=== PATIENT | female | born 1980 | race Caucasian/White ===

== ENCOUNTER 2019-03-24 14:33 | Emergency (ER) | payer OTHER ==
[~2019-03-24] VITALS: Ht 152.4 cm; Wt 72.6 kg
[2019-03-24 14:35] VITALS: BP 114/63
--- NOTE | 2019-03-24 14:35 | NUR ---
PATIENT AMBULATED TO ER BED 9.
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
[2019-03-24] MEDS ORDERED: NACL 0.9% 1,000 ML IV ONE (15:30)
[2019-03-24] MEDS ORDERED: MORPHINE SULFATE 2 MG/ML SYR IVP ONE (15:30)
[2019-03-24] MEDS ORDERED: ONDANSETRON 4 MG/2 ML VIAL IVP ONE (15:30)
--- NOTE | 2019-03-24 15:59 | NUR ---
PATIENT TAKEN TO CT.
[2019-03-24 16:01] LABS: BASOPHILS # (AUTO) 0.2 K/uL (0.00-0.22); EOSINOPHILS # (AUTO) 0.1 K/uL (0-0.4); EOSINOPHILS % (AUTO) 2.5 % (0.0-4.0); HEMATOCRIT 34.2 % (36-48); HEMOGLOBIN 11.2 g/dL (12.0-16.0); LYMPHOCYTES # (AUTO) 1.4 K/uL (2.5-16.5); LYMPHOCYTES % (AUTO) 26.6 % (20.5-51.1); MEAN CORPUSCULAR HEMOGLOBIN 26 pg (27-31); MEAN CORPUSCULAR HGB CONC 33 g/dL (33-37); MEAN CORPUSCULAR VOLUME 78.4 fL (80-94); MONOCYTES # (AUTO) 0.4 K/uL (0.8-1.0); MONOCYTES % (AUTO) 8.3 % (1.7-9.3); NEUTROPHILS # (AUTO) 3.1 K/uL (1.8-7.7); NEUTROPHILS % (AUTO) 59.6 % (42.2-75.2); PLATELET COUNT (AUTO) 319 K/uL (140-450); RED BLOOD CELL COUNT(AUTO) 4.36 MIL/uL (4.20-5.40); RED CELL DISTRIBUTION WIDTH 16.7 % (11.6-13.7); WHITE BLOOD COUNT (AUTO) 5.3 K/uL (4.8-10.8)
--- NOTE | 2019-03-24 16:13 | NUR ---
PT RETURN FROM CT.
[2019-03-24 16:15] LABS: ALBUMIN 3.6 g/dL (3.4-5.0); ANION GAP 14.3 (8-16); CARBON DIOXIDE 26.6 mmol/L (21-32); CREATININE 0.9 mg/dL (0.6-1.3); POTASSIUM 3.9 mmol/L (3.5-5.1); TOTAL BILIRUBIN 0.3 mg/dL (0.0-1.0)
[2019-03-24 17:09] VITALS: BP 111/69
--- NOTE | 2019-03-24 17:09 | NUR ---
Patient discharged with v/s stable. Written and verbal after care instructions given and explained. Patient alert, oriented and verbalized understanding of instructions. Ambulatory with steady gait. All questions addressed prior to discharge. ID band removed. Patient advised to follow up with PMD. Rx of MEDROL DOSEPAK & TRAMADOL given. Patient educated on indication of medication including possible reaction and side effects. Opportunity to ask questions provided and answered.
== END 2019-03-24 17:09 | disposition home or self-care (01) ==
LOC: MED 14:33
DX: M54.41 Lumbago with sciatica, right side (principal)
CPT/HCPCS: 36415; 72131; 72192; 80053; 81002; 81025; 85025; 96374; 96375; 99284; J2270; J2405; J7030

== ENCOUNTER 2019-10-15 02:57 | Emergency (ER) | payer SELFPAY ==
[~2019-10-15] VITALS: Ht 152.4 cm; Wt 68.0 kg
[2019-10-15 03:03] VITALS: BP 146/78
--- NOTE | 2019-10-15 03:03 | NUR ---
PT AMBULATED TO BED #8
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
--- NOTE | 2019-10-15 03:23 | NUR ---
CALLED [facility] TO MAKE REPORT. SPOKE WITH LEIA, DISPATCH #[id number] CLOSED CALL. Addendum: 10/15/[address] [facility] PER [facility] DISPATCH, PT WILL NEED TO MAKE REPORT IN PERSON AT [facility].
--- NOTE | 2019-10-15 03:28 | NUR ---
PTS WOUND WAS CLEAND WITH NS. SUTURE SET UP AT BED SIDE.
--- NOTE | 2019-10-15 03:28 | NUR ---
Dr. Halmlan examining patient.
--- NOTE | 2019-10-15 03:28 | NUR ---
DR. OUMOU MCDONNELL AT BEDSIDE.
[2019-10-15] MEDS ORDERED: LIDOCAINE MPF 1% 5 ML ONE ×3 (03:33→03:38)
--- NOTE | 2019-10-15 03:34 | NUR ---
DR. ARMSTRONG AT BEDSIDE FOR LAC REPAIR.
[2019-10-15] MEDS ORDERED: LIDOCAINE MPF 1% 10 MG/ML VIAL INJ ONE ×3 (03:50)
[2019-10-15] MEDS ORDERED: BACITRACIN OINT 500 UNITS/GM PKT TP ONE ×2 (03:55→04:00)
--- NOTE | 2019-10-15 04:07 | NUR ---
BACITRACIN WAS PLACED ON PTS LAC, THEN COVERRED WITH A NON ADHERENT GAUZE. ROLL GAUZE WAS THEN USED TO WRAP WOUND. PTS GEORGETTE WNL.
[2019-10-15 04:19] VITALS: BP 146/78
--- NOTE | 2019-10-15 04:19 | NUR ---
Patient discharged with v/s stable. Written and verbal after care instructions given and explained. Patient alert, oriented and verbalized understanding of instructions. Ambulatory with steady gait. All questions addressed prior to discharge. ID band removed. Patient advised to follow up with PMD. Rx of Motrin and Bactrim DS given. Patient educated on indication of medication including possible reaction and side effects. Opportunity to ask questions provided and answered.
== END 2019-10-15 04:19 | disposition home or self-care (01) ==
LOC: MED 02:57
DX: S81.011A Laceration without foreign body, right knee, initial encounter (principal); X58.XXXA Exposure to other specified factors, initial encounter; Y93.89 Activity, other specified; Y92.89 Other specified places as the place of occurrence of the external cause; Y99.8 Other external cause status
CPT/HCPCS: 12002; 90471; 90715; 99283; J2001